=== PATIENT | female | born 1990 | race Caucasian/White ===

== ENCOUNTER 2017-01-04 02:16 | Emergency (ER) | payer OTHER ==
[~2017-01-04 02:16] MED LIST: FLINTSTONES T100 MCG PO; NO MEDICATIONS; PRENATAL VIT; ULTRAM PO; ZITHROMAX PO; ZOFRAN ODT4 MG PO
[2017-01-04] MEDS ORDERED: NO MEDICATIONS (02:22)
== END 2017-01-04 03:00 | disposition home or self-care (01) ==
LOC: SED 02:16
DX: S00.412A Abrasion of left ear, initial encounter (principal); H60.312 Diffuse otitis externa, left ear; F17.210 Nicotine dependence, cigarettes, uncomplicated; X58.XXXA Exposure to other specified factors, initial encounter; Y92.9 Unspecified place or not applicable
CPT/HCPCS: 99282